=== PATIENT | female | born 1995 | race Caucasian/White ===

== ENCOUNTER 2019-11-18 15:00 | Inpatient (IN) | payer OTHER ==
[2019-11-18 17:18] LABS: BASO % 0.5 % (0-2.0); HEMATOCRIT 34.5 % (32.4-45.2); HEMOGLOBIN 11.3 GM/dL (10.7-15.3); LYMPH % 11.7 % (8-40); MCH 27.2 pg (25.7-33.7); MCHC 32.7 g/dl (32.0-36.0); MEAN CELL VOLUME 83.2 fl (80-96); MEAN PLT VOLUME 8.7 fl (7.5-11.1); MONO % 3.8 % (3.8-10.2); PLATELET COUNT 288 K/MM3 (134-434); RBC 4.15 M/mm3 (3.60-5.2); RDW 15.8 % (11.6-15.6); WHITE BLOOD COUNT 10.7 K/mm3 (4.0-10.0)
[2019-11-18 17:31] LABS: INR 0.92 (0.83-1.09); PROTHROMBIN TIME (PATIENT) 10.8 SEC (9.7-13.0)
[2019-11-18 17:34] LABS: ACTIVATED PTT 28.9 SECONDS (25.2-36.5)
[2019-11-18] MEDS ORDERED: ELECTROLYTE-148 SOLN 1,000 ML IV SCH (17:45)
[2019-11-18 17:48] LABS: BLOOD UREA NITROGEN 8.2 mg/dL (7-18); CREATININE 0.5 mg/dL (0.55-1.3); POTASSIUM 4.2 mmol/L (3.5-5.1)
[2019-11-18 18:43] VITALS: BMI 29.2
[2019-11-18 20:05] LABS: HIV INTERPRETATION NEGATIVE (NEGATIVE)
[2019-11-18] MEDS ORDERED: BUTORPHANOL TARTRATE 1 MG/ML VIAL IVPB ONE (22:47)
[2019-11-18] MEDS ORDERED: BUTORPHANOL TARTRATE 1 MG/ML VIAL ONE ×2 (23:05)
[2019-11-19] MEDS ORDERED: OXYTOCIN 20 UNITS in 0.9% NS 20 UNIT/1,000 ML INFUS.BAG IV ONE (01:09)
[2019-11-19] MEDS ORDERED: FENTANYL/BUPIVACAINE/NS/PF - PCEA - 50 ML DISP.SYRIN EP ONE (03:02)
[2019-11-19] MEDS ORDERED: METHYLERGONOVINE MALEATE 0.2 MG/1 ML AMP IM PRN (03:07)
[2019-11-19] MEDS ORDERED: BISACODYL 10 MG SUPP.RECT RC PRN (03:07)
[2019-11-19] MEDS ORDERED: BENZOCAINE 28 GM HEMORRHOIDAL OINTMENT TP PRN (03:07)
[2019-11-19] MEDS ORDERED: OXYTOCIN 30 UNITS in 0.9% NS 30 UNIT/500 ML INFUS.BAG IVPB SCH (03:15)
[2019-11-19] MEDS: FENTANYL/BUPIVACAINE/NS/PF - PCEA - 50 ML DISP.SYRIN EP SCH (03:30)
[2019-11-19] MEDS ORDERED: NALOXONE HCL 0.4 MG/ML VIAL IVPUSH PRN (03:38)
[2019-11-19] MEDS ORDERED: FENTANYL/BUPIVACAINE/NS/PF - PCEA - 50 ML DISP.SYRIN EP SCH (03:45)
[2019-11-19 07:29] LABS: CORD HCO3 20.4 mmHg (20-29); CORD PCO2 39.5 mmHg (30-78); CORD pH 7.331 (7.14-7.44)
[2019-11-19 07:32] LABS: CORD PCO2 47.5 mmHg (30-78); CORD pH 7.283 (7.14-7.44)
[2019-11-19] MEDS: IBUPROFEN 600 MG TABLET (FP) PO PRN ×2 (08:15→16:33)
[2019-11-19] MEDS ORDERED: ACETAMINOPHEN 325 MG TABLET (FP) ONE (08:15)
[2019-11-19] MEDS ORDERED: IBUPROFEN 600 MG TABLET (FP) PO ONE (08:15)
[2019-11-19] MEDS: ACETAMINOPHEN 325 MG TABLET (FP) PO PRN ×2 (08:15→16:33)
[2019-11-19] MEDS: WITCH HAZEL 50% (TUCKS) 40 PAD/JAR PAD TP PRN ×2 (10:19→16:34)
[2019-11-19] MEDS: BENZOCAINE 20% 57 GM BOTTLE TP PRN ×2 (10:19→16:35)
[2019-11-20] MEDS: FENTANYL/BUPIVACAINE/NS/PF - PCEA - 50 ML DISP.SYRIN EP SCH (04:57)
[2019-11-20 09:15] LABS: BASO % 0.5 % (0-2.0); EOS % 0.8 % (0-4.5); HEMATOCRIT 30.9 % (32.4-45.2); LYMPH % 26.3 % (8-40); MCH 26.9 pg (25.7-33.7); MCHC 32.3 g/dl (32.0-36.0); MEAN CELL VOLUME 83.2 fl (80-96); MEAN PLT VOLUME 8.5 fl (7.5-11.1); MONO % 4.9 % (3.8-10.2); NEUT % 67.5 % (42.8-82.8); PLATELET COUNT 273 K/MM3 (134-434); RBC 3.71 M/mm3 (3.60-5.2); RDW 16.1 % (11.6-15.6); WHITE BLOOD COUNT 12.7 K/mm3 (4.0-10.0)
[2019-11-20 10:48] VITALS: BP 110/73; PULSE 73; TEMP 98.3
[2019-11-20] MEDS ORDERED: SENNOSIDES/DOCUSATE COMBO (SENNA PLUS) TABLET (UD) PO PRN (22:00)
== END 2019-11-20 12:50 | disposition home or self-care (01) | DRG 560 ==
LOC: JDEL 15:00 → JLDR 15:30 → J3W 11-19 08:25
PROVIDERS: ADMIT Specialist; ATTEND Specialist
PROC: 10E0XZZ Delivery of Products of Conception, External Approach (ICD-10-PCS; principal; 2019-11-19)
PROC: 0HQ9XZZ Repair Perineum Skin, External Approach (ICD-10-PCS; 2019-11-19)
PROC: 0W8NXZZ Division of Female Perineum, External Approach (ICD-10-PCS; 2019-11-19)
DX: O70.0 First degree perineal laceration during delivery (principal); Z3A.38 38 weeks gestation of pregnancy; Z37.0 Single live birth
CPT/HCPCS: 36415; 36600; 59409; 80048; 82803; 85025; 85610; 85730; 86780; 86850; 86900; 86901; 87389; U0003